=== PATIENT | male | born 1945 | race Caucasian/White ===

== ENCOUNTER 2017-06-05 13:41 | Day surgery (SDC) | payer OTHER ==
[~2017-06-05 13:41] MED LIST: 0.9% Sodium Chloride 1,000 ML IV PRN; LEVO150T46 PO; METO-272 PO; NITR0.4T6 SL; POLY17PO6 PO; Sodium Chloride LOK Flush 10 mL Syringe IV PRN; VENL150C PO; VENL150C98 PO; ZOLP10TA5 PO; fentaNYL-PF 50 mCg/mL 2 mL Inj IVPUSH PRN
[2017-06-05 14:29] VITALS: BP 128/76; PULSE 61; RESP 16; O2SAT 96
[2017-06-05] MEDS ORDERED: fentaNYL-PF 50 mCg/mL 2 mL Inj ONE (14:40)
[2017-06-05 15:15] VITALS: BP 119/72; PULSE 62; O2SAT 95
[2017-06-05 15:25] VITALS: BP 122/75; PULSE 67; RESP 16; O2SAT 94
--- NOTE | 2017-06-05 15:29 | ENDO ---
[address] [address] ENDOSCOPY PROCEDURE PATIENT: LUKE VELEZ : 1945 MR#: [id number] ADMIT: 06/05/2017 JOB ID: [id number] DATE OF SERVICE: 06/05/2017 TYPE OF OPERATION: Colonoscopy. PREOPERATIVE DIAGNOSIS(ES): Constipation. POSTOPERATIVE DIAGNOSIS(ES): 1. Mild sigmoid diverticulosis. 2. Small internal hemorrhoids. ANESTHESIA: Fentanyl 100 mcg, Versed 4 mg IV administered. COMPLICATIONS: None. BLOOD LOSS: Minimal. DESCRIPTION OF PROCEDURE: After risks and benefits explained to the patient, informed consent was obtained. After anesthesia administered, colonoscope was then inserted from the rectum to the terminal ileum. Mucosa carefully examined. Prep of the patient was excellent. After procedure was done, the scope withdrawn, procedure terminated. FINDINGS: Upon inspection of the anus, no masses, hemorrhoids, ulcers, or fissures that were seen. Throughout the entire examination, there was mild sigmoid diverticulosis. No polyps or masses were seen. Retroflexion showed small internal hemorrhoids. IMPRESSION: 1. Small internal hemorrhoids. 2. Mild sigmoid diverticulosis. RECOMMENDATIONS: 1. High-fiber diet. 2. Repeat colonoscopy in 10 years for colorectal cancer screening. Follow up in GI clinic as needed.
[2017-06-05 15:35] VITALS: BP 131/69; PULSE 70; RESP 16; O2SAT 93
== END 2017-06-05 23:59 | disposition home or self-care (01) ==
LOC: END 13:41
PROVIDERS: ATTEND Internal Medicine Gastroenterology
DX: K57.30 Diverticulosis of large intestine without perforation or abscess without bleeding (principal); I25.10 Atherosclerotic heart disease of native coronary artery without angina pectoris; E78.5 Hyperlipidemia, unspecified; Z79.82 Long term (current) use of aspirin; K64.8 Other hemorrhoids
CPT/HCPCS: 45378; G0500; J2250; J3010; J7030